=== PATIENT | male | born 1985 | race Caucasian/White ===

== ENCOUNTER 2018-08-02 22:37 | Emergency (ER) | payer OTHER ==
[~2018-08-02] VITALS: Ht 177.8 cm; Wt 127.0 kg
[~2018-08-02 22:37] MED LIST: ANXIETY MED; BP MED; HYDACE5 PO; IBUP600 PO; Norco 5-325 Ta1 EACH PO; [UNRECOGNIZED DRUG - REMARK]
[2018-08-02] MEDS ORDERED: LISI5 (22:57)
[2018-08-02] MEDS ORDERED: METF500 (22:57)
[2018-08-02 23:29] LABS: BASOPHILS ABSOLUTE AUTO 0.07 K/mm3 (0.00-0.23); BASOPHILS PERCENT AUTO 1 % (0-2); EOSINOPHILS ABSOLUTE AUTO 0.13 K/mm3 (0.00-0.68); EOSINOPHILS PERCENT AUTO 2 % (0-6); Hematocrit 40.2 % (37.0-53.0); Hemoglobin 13.6 g/dL (13.5-17.5); IMMATURE GRAN ABSOLUTE AUTO 0.01 K/mm3 (0.00-0.10); IMMATURE GRAN PERCENT AUTO 0 % (0-1); LYMPHOCYTES ABSOLUTE AUTO 2.78 K/mm3 (0.84-5.20); LYMPHOCYTES PERCENT AUTO 37 % (21-46); MONOCYTES ABSOLUTE AUTO 1.04 K/mm3 (0.16-1.47); MONOCYTES PERCENT AUTO 14 % (4-13); Mean Corpuscular HGB 30.7 pg (26.0-34.0); Mean Corpuscular HGB Conc 33.8 g/dL (31.5-36.5); Mean Corpuscular Volume 91 fL (80-100); Mean Platelet Volume 10.7 fL (9.1-12.4); NEUTROPHILS ABSOLUTE AUTO 3.51 K/mm3 (1.96-9.15); NEUTROPHILS PERCENT AUTO 47 % (41-73); Platelet Count 235 K/mm3 (150-400); RDW Coefficient Variation 12.3 % (11.7-14.2); RDW Standard Deviation 40.6 fL (35.1-46.3); Red Blood Cell Count 4.43 M/mm3 (4.30-5.90); White Blood Cell Count 7.54 K/mm3 (4.00-11.30)
[2018-08-02 23:50] LABS: Alanine Aminotransfer (ALT/SGP 82 U/L (12-78); Albumin, Blood 3.8 g/dL (3.4-5.0); Alk Phos 58 U/L (50-136); Anion Gap 8 mmol/L (6-16); Aspartate Aminotrans (AST/SGOT 38 U/L (12-37); Bilirubin, Total 0.3 mg/dL (0.1-1.0); Blood Urea Nitrogen 15 mg/dL (8-24); Bun/Creatinine Ratio 23.4 (12.0-20.0); CO2, Blood 25 mmol/L (21-32); Calcium, Blood 8.8 mg/dL (8.5-10.1); Chloride, Blood 104 mmol/L (98-108); Creatinine, Blood 0.64 mg/dL (0.60-1.20); Globulin, Blood 3.8 g/dL (2.2-4.0); Glomerular Filtration Rate >60 (60-); Glucose, Blood 297 mg/dL (70-99); Potassium, Blood 4.4 mmol/L (3.5-5.5); Sodium, Blood 137 mmol/L (136-145); Total Protein, Blood 7.6 g/dL (6.4-8.2); Troponin I <0.015 ng/mL (0.000-0.040)
[2018-08-03] MEDS ORDERED: Zofran8 MG PO (00:44)
[2018-08-03] MEDS ORDERED: IBUP400 PO (00:44)
[2018-08-03] MEDS ORDERED: HYDR1TAB94 PO (00:44)
== END 2018-08-03 00:50 | disposition home or self-care (01) ==
LOC: ER 22:37
PROVIDERS: Emergency Medicine
DX: R07.9 Chest pain, unspecified (principal); I10 Essential (primary) hypertension; Z90.89 Acquired absence of other organs; Z87.891 Personal history of nicotine dependence
CPT/HCPCS: 36415; 71046; 80053; 84484; 85025; 93005; 93010; 96374; 96375; 99285-25; J1885; J2405

== ENCOUNTER 2020-02-18 17:35 | Emergency (ER) | payer OTHER ==
[~2020-02-18] VITALS: Ht 175.3 cm; Wt 122.5 kg
[~2020-02-18 17:35] MED LIST changes: +HYDR1TAB94 PO; +IBUP400 PO; +LISI5; +METF500; +Zofran8 MG PO
[2020-02-18 17:56] LABS: BASOPHILS ABSOLUTE AUTO 0.09 K/mm3 (0.00-0.23); BASOPHILS PERCENT AUTO 1 % (0-2); EOSINOPHILS ABSOLUTE AUTO 0.13 K/mm3 (0.00-0.68); EOSINOPHILS PERCENT AUTO 2 % (0-6); Hematocrit 44.4 % (37.0-53.0); Hemoglobin 15.8 g/dL (13.5-17.5); IMMATURE GRAN ABSOLUTE AUTO 0.01 K/mm3 (0.00-0.10); IMMATURE GRAN PERCENT AUTO 0 % (0-1); LYMPHOCYTES ABSOLUTE AUTO 2.88 K/mm3 (0.84-5.20); LYMPHOCYTES PERCENT AUTO 37 % (21-46); MONOCYTES PERCENT AUTO 10 % (4-13); Mean Corpuscular HGB 30.4 pg (26.0-34.0); Mean Corpuscular HGB Conc 35.6 g/dL (31.5-36.5); Mean Corpuscular Volume 86 fL (80-100); Mean Platelet Volume 10.3 fL (9.1-12.4); NEUTROPHILS ABSOLUTE AUTO 3.93 K/mm3 (1.96-9.15); NEUTROPHILS PERCENT AUTO 50 % (41-73); Platelet Count 294 K/mm3 (150-400); RDW Coefficient Variation 11.8 % (11.7-14.2); RDW Standard Deviation 36.4 fL (35.1-46.3); Red Blood Cell Count 5.19 M/mm3 (4.30-5.90); White Blood Cell Count 7.84 K/mm3 (4.00-11.30)
[2020-02-18 18:14] LABS: Alanine Aminotransfer (ALT/SGP 95 U/L (12-78); Albumin, Blood 3.9 g/dL (3.4-5.0); Alk Phos 62 U/L (50-136); Anion Gap 9 mmol/L (6-16); Aspartate Aminotrans (AST/SGOT 39 U/L (12-37); Bilirubin, Total 0.3 mg/dL (0.1-1.0); Blood Urea Nitrogen 11 mg/dL (8-24); Bun/Creatinine Ratio 20.4 (12.0-20.0); CO2, Blood 23 mmol/L (21-32); Calcium, Blood 9.3 mg/dL (8.5-10.1); Chloride, Blood 104 mmol/L (98-108); Creatinine, Blood 0.54 mg/dL (0.60-1.20); Globulin, Blood 4.1 g/dL (2.2-4.0); Glomerular Filtration Rate >60 (60-); Glucose, Blood 256 mg/dL (70-99); Potassium, Blood 4.1 mmol/L (3.5-5.5); Sodium, Blood 136 mmol/L (136-145)
[2020-02-18] MEDS ORDERED: LISI20 PO (18:44)
[2020-02-18] MEDS ORDERED: BUPROPION XL150 M1 PO (18:44)
[2020-02-18] MEDS ORDERED: GLIP5ER PO (18:45)
[2020-02-18] MEDS ORDERED: EUTHYROX75 MC1 PO (18:46)
[2020-02-18] MEDS ORDERED: ESCI20 PO (18:47)
[2020-02-18] MEDS ORDERED: METFORMIN HCL1000 M5 PO (18:48)
[2020-02-18] MEDS ORDERED: RED YEAST RICE (18:49)
[2020-02-18] MEDS ORDERED: FISH OIL-VIT D1 EACH PO (18:50)
[2020-02-18] MEDS ORDERED: [UNRECOGNIZED DRUG - OTHER] (18:51)
[2020-02-18] MEDS ORDERED: GLUTATHIONE (18:51)
[2020-02-18] MEDS ORDERED: [UNRECOGNIZED DRUG - OTHER] (18:51)
[2020-02-18] MEDS ORDERED: DIM (18:52)
[2020-02-18] MEDS ORDERED: [UNRECOGNIZED DRUG - OTHER] (18:52)
== END 2020-02-18 19:00 | disposition home or self-care (01) ==
LOC: ER 17:35
PROVIDERS: Physician Assistant
DX: E11.65 Type 2 diabetes mellitus with hyperglycemia (principal); K76.0 Fatty (change of) liver, not elsewhere classified; I10 Essential (primary) hypertension; E11.9 Type 2 diabetes mellitus without complications; Z79.84 Long term (current) use of oral hypoglycemic drugs; Z87.891 Personal history of nicotine dependence; Z79.899 Other long term (current) drug therapy
CPT/HCPCS: 36415; 80053; 85025; 99283